=== PATIENT | female | born 1990 | race Caucasian/White ===

== ENCOUNTER 2016-05-26 13:09 | Emergency (ER) | payer BC, OTHER ==
[2016-05-26] MEDS ORDERED: Ondansetron ODT TAB* 4 MG PO ONE (13:34)
--- NOTE | 2016-05-26 13:35 | UC ---
UC General HPI - HPI Summary HPI Summary: The patient comes in today for: 1. Nausea/vomiting: Onset: 4 days ago. Palliative/provocative: Some smells makes her nausea worse. Quality: Nausea, only. Region: GI Severity: 8/10 Time: Some low level nausea with some rise in nausea that leads to her wanting to throw up. Associated symptoms: Abdominal cramps: None. Diarrhea: None. Vomiting: Once this morning and last night. Urination: Normal--color yellow--"I've been urinating a lot." Nausea treatment: None. LMP: May 07 of this year. There are three other women she is living with who have had a similar condition, but are further along in their recovery. * - History of Current Complaint Stated Complaint: NAUSEA,DRY HEAVING Hx Obtained From: Patient - Allergy/Home Medications Allergies/Adverse Reactions: Allergies Allergy/AdvReac Type Severity Reaction Status Date / Time No Known Allergies Allergy Verified 05/26/16 13:42 PMH/Surg Hx/FS Hx/Imm Hx Previously Healthy: No - Family planning/BCP Endocrine History Of: Denies: Diabetes, Thyroid Disease, Hyperthyroidism, Hypothyroidism, Dyslipidemia Cardiovascular History Of: Denies: Cardiac Disorders, Hypertension, Pacemaker/ICD, Myocardial Infarction , Congestive Heart Failure, Atrial Fibrillation, Deep Vein Thrombosis, Bleeding Disorders Respiratory History Of: Denies: COPD, Asthma, Bronchitis, Pneumonia, Pulmonary Embolism GI/ History Of: Denies: Gastroesophageal Reflux, Ulcer, Gastrointestinal Bleed, Gall Bladder Disease, Kidney Stones, Diverticulitis, Renal Disease, Urosepsis Neurological History Of: Denies: TIA, CVA, Dementia, Seizures, Migraine Psychological History Of: Denies: Anxiety, Depression, Bipolar Disorder, Schizophrenia, Post Traumatic Stress Disorder Cancer History Of: Denies: Lung Cancer, Colorectal Cancer, Breast Cancer, Prostate Cancer, Cervical Cancer Other History Of: Negative For: HIV, Hepatitis B, Hepatitis C, Anticoagulant Therapy - Surgical History Surgical History: Yes Surgery Procedure, Year, and Place: LEEP procedure- 10/05/14 for abnormal cells - Family History Known Family History: Negative: Cardiac Disease, Hypertension - Social History Occupation: Employed Part-time, Student Alcohol Use: None Substance Use Type: None Smoking Status (MU): Never Smoked Tobacco Review of Systems Constitutional: Negative Skin: Negative Eyes: Negative ENT: Negative Respiratory: Negative Cardiovascular: Negative Gastrointestinal: Negative, Vomiting Genitourinary: Negative All Other Systems Reviewed And Are Negative: Yes Physical Exam Triage Information Reviewed: Yes Appearance: Well-Appearing, No Pain Distress, Well-Nourished Vital Signs Reviewed: Yes Eyes: Positive: Conjunctiva Clear. Negative: Discharge ENT: Positive: Hearing grossly normal. Negative: Pharyngeal erythema, Nasal congestion, Nasal drainage, TM bulging, TM dull, TM red, Tonsillar swelling, Tonsillar exudate Dental: Negative: Gross Decay/Caries @, Dental Fracture @ Neck: Positive: Supple, Nontender, No Lymphadenopathy. Negative: Nuchal Rigidity Respiratory: Positive: Lungs clear, No respiratory distress, No accessory muscle use. Negative: Crackles, Stridor, Wheezing Cardiovascular: Positive: RRR, No Murmur Abdomen Description: Positive: Nontender, No Organomegaly, Soft. Negative: Distended, Guarding, Peritoneal Signs Musculoskeletal: Positive: Strength Intact, ROM Intact Neurological: Positive: Alert, Muscle Tone Normal Psychological: Positive: Age Appropriate Behavior, Consolable Skin: Negative: rashes, breakdown Re-Evaluation - Re-Evaluation First Eval Change: Improved - The patient states that she has a reduction in her nausea from 8/10 to 4/10. Course/Dx - Differential Dx - Multi-Symptom Differential Diagnoses: Other Provider Diagnoses: Viral gastroenteritis Discharge - Discharge Plan Condition: Stable Disposition: HOME Patient Education Materials: Gastroenteritis (ED) Referrals: BRISEYDA Cruz [Primary Care Provider] - 1 Week (Please see your primary care provider in about a week to see how well you are doing. If you get worse, please be seen sooner.)
[2016-05-26 13:47] VITALS: BP 113/60
== END 2016-05-26 14:39 | disposition home or self-care (01) ==
LOC: UCCORT 13:09
DX: A08.4 Viral intestinal infection, unspecified (principal)
CPT/HCPCS: 99212; A9270-GY; G0463

== ENCOUNTER 2016-07-03 19:25 | Emergency (ER) | payer BC | END 2016-07-03 21:31 | disposition left against medical advice (07) | LOC: UCCORT 19:25 | DX: S69.91XA Unspecified injury of right wrist, hand and finger(s), initial encounter (principal); X58.XXXA Exposure to other specified factors, initial encounter; Y93.9 Activity, unspecified; Y92.9 Unspecified place or not applicable; Z53.21 Procedure and treatment not carried out due to patient leaving prior to being seen by health care provider ==

== ENCOUNTER 2017-05-14 13:50 | Emergency (ER) | payer OTHER ==
--- NOTE | 2017-05-14 15:35 | UC ---
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 - History of Current Complaint Stated Complaint: LEFT ARM PAIN Time Seen by Provider: 05/14/17 15:35 Hx Obtained From: Patient Hx Last Menstrual Period: 05/07/2016 Onset/Duration: Sudden Onset Severity Initially: Moderate Severity Currently: Moderate Pain Scale Used: 0-10 Numeric - 7 Location Of Pain: Is Diffuse Character: Sharp, Dull, Aching Aggravating Factor(s): Movement, Lifting, Flexion, Extension, Abduction, Adduction Alleviating Factor(s): Rest Associated Signs And Symptoms: Positive: Negative - Allergies/Home Medications Allergies/Adverse Reactions: Allergies Allergy/AdvReac Type Severity Reaction Status Date / Time No Known Allergies Allergy Verified 05/26/16 13:42 PMH/Surg Hx/FS Hx/Imm Hx Previously Healthy: Yes Other History Of: Negative For: HIV, Hepatitis B, Hepatitis C, Anticoagulant Therapy - Surgical History Surgical History: Yes Surgery Procedure, Year, and Place: LEEP procedure- 10/05/14 for abnormal cells - Family History Known Family History: Negative: Cardiac Disease, Hypertension - Social History Alcohol Use: Occasionally Substance Use Type: None Smoking Status (MU): Never Smoked Tobacco Review of Systems Constitutional: Negative Skin: Negative Eyes: Negative ENT: Negative Respiratory: Negative Cardiovascular: Negative Gastrointestinal: Negative Genitourinary: Negative Motor: Negative Neurovascular: Negative Musculoskeletal: Other: - LEFT TRICEP PAIN Neurological: Negative Psychological: Negative All Other Systems Reviewed And Are Negative: Yes Physical Exam Triage Information Reviewed: Yes Vital Signs Reviewed: Yes Eye Exam: Normal ENT Exam: Normal Dental Exam: Normal Neck exam: Normal Neck: Positive: 1 Respiratory Exam: Normal Cardiovascular Exam: Normal Abdominal Exam: Normal Musculoskeletal: Positive: Other: - LEFT TRICEP PAIN/STRAIN Neurological Exam: Normal Psychological Exam: Normal Skin Exam: Normal Upper Extremity Course/Dx - Differential Dx/Diagnosis Provider Diagnoses: LEFT TRICEPS STRAIN Discharge - Discharge Plan Condition: Stable Disposition: HOME Prescriptions: Ibuprofen TAB* [Motrin TAB* 800 MG] 800 mg PO Q6H #30 tab Methocarbamol TAB* [Robaxin 500 MG TAB*] 500 mg PO TID PRN #30 tab PRN Reason: Pain Patient Education Materials: Tendinitis (ED) Forms: *Work Release Referrals: Chris Fulton MD [Medical Doctor] - BRISEYDA Cruz [Medical Doctor] - Yonatan Garrett [Physical Therapist] -
--- OUTSIDE RECORDS SUMMARY | 2017-05-14 15:43 | XMS REPORT ---
:1990 External Reference #:[id number] Author Organization [facility] Address [address] [place] [address] Phone [phone] Care Team Providers Name Role Phone Yolande Velazquez M.D. Primary Care Physician Unavailable Payers Type Date Identification Numbers Payment Provider Subscriber Commercial Effective: Policy Number: [id number] Snow Wagner 2016 PayID: [id number] [address] [place] [address] Commercial Expires: 2017 Policy Number: [employer] BC/BS Of Mayra Wagner [id number] ARIAN PayID: [id number] [address] [address] [place] [address] Problems Date Description Provider Status Onset: 10/05/2014 Cervical intraepithelial neoplasia In Rodrigo Sanchez M.D. Active grade 2 Onset: 09/01/2014 Dysplasia of cervix In Rodrigo Sanchez M.D. Active Onset: 07/23/2014 Atypical glandular cells on cervical Alicia Jean Baptiste CNM Active Papanicolaou smear Onset: 05/04/2014 Cervicovaginal cytology: Low grade Alicia Jean Baptiste CNM Active squamous intraepithelial lesion Onset: 05/04/2014 Candidal vulvovaginitis Alicia Jean Baptiste CNM Active Onset: 04/15/2014 Contraception care management Alicia Jean Baptiste CNM Active Onset: 04/15/2014 Screening for malignant neoplasm of Alicia Jean Baptiste CNM Active cervix Onset: 04/15/2014 Oral contraception Alicia Jean Baptiste CNM Active Onset: 04/15/2014 Refractory migraine without aura Gagrenetta, Alicia, CNM Active Family History Date Family Member(s) Problem(s) Comments Father No Current Problems Mother No Current Problems Social History Type Date Description Comments Marital Status Legal Status: Never Lives With Alone Smoke-Free Home is smoke-free Smoke-Free Work is smoke-free Work Status Full-Time Employment Abuse No history of abuse ETOH Use Occasionally consumes alcohol Smoking Patient has never smoked Recreational Drug Use Never Used Drugs Daily Caffeine Does Not Consume Caffeine Age 1st Dustin 17 Years Old # Partners in a Lifetime 7 STD's HPV Allergies, Adverse Reactions, Alerts Date Description Reaction Status Severity Comments 05/04/2014 NKDA active Medications Medication Date Status Form Strength Qnty SIG Indications Ordering Provider Sprintec 28 05/04/ Active Tablets 0.25-35mg- 28tabs Take One Z30.41 Marce2013 mcg Pill At [facility] The Same e, CNM Time Every Day Macrobid 03/14/ Hx Capsules 100mg 14caps twice a In [facility] 2016 day Penny Sanchez. Metronidazole 12/09/ Hx Tablets 500mg 14tabs 1 by 616.11 In [facility] 2014 mouth Oh MJaimeDJaime every 12 hours x 7 days No Active 05/04/ Hx Unknown Medications 2013 - 2013 Fluconazole 05/04/ Hx Tablets 150mg 1tabs take one 112.1 2013 tab now Jessica e, CNM Terazol 3 04/20/ Hx Cream 0.8% 3doses use in 2013 vagina Jessica for 3 e, CNM nights Sprintec 28 04/15/ Hx Tablets 0.25-35mg- 28tabs take one V25.41 Marce2013 mcg pill at [facility] the same e, CNM time every day Sprintec 28 / Hx Unknown 0000 Loratadine / Hx Tablets 10mg Atkinson, 0000 ELANA Casarez Fluticasone / Hx Suspension 50mcg/Act Use 2 Unknown Propionate 0000 Sprays Each Nostril Every Day Medications Administered in Office Medication Date Status Form Strength Qnty SIG Indications Ordering Provider Subcutaneous Or 12/06/ Administered Injection Gagen, Intramuscular 2009 Alicia Injection , CNM Subcutaneous Or 09/10/ Administered Injection Gagen, Intramuscular 2009 Alicia Injection , CNM Subcutaneous Or 03/19/ Administered Injection Gagen, Intramuscular 2008 Alicia Injection , CNM Subcutaneous Or 01/01/ Administered Injection Gagen, Intramuscular 2008 Alicia Injection , CNM Vital Signs Date Vital Result Comment 05/11/2017 Height 62.25 inches 5'2.25" Weight 125.00 lb BP Systolic 120 mmHg BP Diastolic 60 mmHg BMI (Body Mass Index) 22.7 kg/m2 09/15/2016 Height 62.75 inches 5'2.75" Weight 126.00 lb BP Systolic 120 mmHg BP Diastolic 66 mmHg BMI (Body Mass Index) 22.5 kg/m2 03/10/2016 Height 62.75 inches 5'2.75" Weight 120.00 lb BP Systolic 104 mmHg BP Diastolic 60 mmHg BMI (Body Mass Index) 21.4 kg/m2 08/26/2015 Height 62 inches 5'2" Weight 122.00 lb BP Systolic 120 mmHg BP Diastolic 60 mmHg BMI (Body Mass Index) 22.3 kg/m2 02/23/2015 Height 62 inches 5'2" Weight 124.00 lb BP Systolic 110 mmHg BP Diastolic 60 mmHg BMI (Body Mass Index) 22.7 kg/m2 12/09/2014 Height 62 inches 5'2" Weight 124.00 lb BP Systolic 120 mmHg BP Diastolic 58 mmHg BMI (Body Mass Index) 22.7 kg/m2 11/13/2014 Height 62 inches 5'2" Weight 126.00 lb BP Systolic 110 mmHg BP Diastolic 60 mmHg BMI (Body Mass Index) 23.0 kg/m2 09/29/2014 Height 62 inches 5'2" Weight 122.00 lb BP Systolic 110 mmHg BP Diastolic 60 mmHg BMI (Body Mass Index) 22.3 kg/m2 09/01/2014 Height 62 inches 5'2" Weight 126.00 lb BP Systolic 120 mmHg BP Diastolic 60 mmHg BMI (Body Mass Index) 23.0 kg/m2 08/13/2014 Height 62 inches 5'2" Weight 126.00 lb BP Systolic 112 mmHg BP Diastolic 58 mmHg BMI (Body Mass Index) 23.0 kg/m2 07/22/2014 Height 62 inches 5'2" Weight 125.00 lb BP Systolic 112 mmHg BP Diastolic 58 mmHg BMI (Body Mass Index) 22.9 kg/m2 05/04/2014 Height 62 inches 5'2" Weight 122.00 lb BP Systolic 120 mmHg BP Diastolic 68 mmHg BMI (Body Mass Index) 22.3 kg/m2 04/15/2014 Height 62 inches 5'2" Weight 120.00 lb BP Systolic 102 mmHg BP Diastolic 60 mmHg BMI (Body Mass Index) 21.9 kg/m2 Results Test Date Test Result H/L Range Note Laboratory test finding 05/11/2017 Cytology <pending> Laboratory test finding 09/15/2016 Cytology SEE RESULT BELOW 1 Laboratory test finding 08/26/2015 Cytology Pap HR- 2 Laboratory test finding 02/23/2015 Cytology Pap See Note 3 Laboratory test finding 12/09/2014 Urine Culture See Note 4 Urinalysis With 12/09/2014 Urine Color YELLOW Yellow Microscopic Urine Clarity CLEAR Clear Urine Glucose - Dipstick NEGATIVE mg/dL Negative Urine Bilirubin - Dipstick NEGATIVE Negative Urine Ketone NEGATIVE mg/dL Negative Urine Specific Irons <=1.005 Low 1.010-1.030 Urine Blood NEGATIVE Negative Urine PH 7.0 6.5-7.5 Urine Protein - Dipstick NEGATIVE mg/dL Negative Urine Urobilinogen - Dipstick 0.2 E.U./dL 0.2-1.0 Urine Nitrite - Dipstick NEGATIVE Negative Urine Leuk Esterase NEGATIVE Negative Urine RBC NONE SEEN rbc/hpf 0-2 Urine WBC NONE SEEN wbc/hpf 0-7 Urine Epithelial Cells VERY FEW NONESEEN/lpf Urine Bacteria VERY FEW NONESEEN Genital Culture W/ Gram Stain 12/09/2014 Gram Stain See Note 5 Genital Culture See Note 6 Chlamydia/GC Vanesa 12/09/2014 Chlamydia Trachomatis, Vanesa Negative Negative Neisseria Gonorrhoeae, Vanesa Negative Negative Please note: See Note 7 Laboratory test finding 10/05/2014 Cervical Cone/LEEP See Note 8 CBC 09/29/2014 White Blood Count 5.3 K/uL 3.1-10.7 Red Blood Count 4.21 M/uL 3.90-5.40 Hemoglobin 13.4 gm/dL 11.6-15.8 Hematocrit 39.8 % 36.0-46.1 Mean Cell Volume 94.5 fl 80.9-99.0 Mean Corpuscular HGB 31.8 pg 25.9-32.7 Mean Corpuscular HGB Conc 33.7 g/dL 30.8-34.3 Platelet Count 284 K/uL 155-360 Red Cell Distri Width %CV 12.3 % 11.7-14.4 Mean Platelet Volume 10.2 fL 8.9-12.4 Laboratory test finding 09/29/2014 HCG,Serum(Qualitative) NEGATIVE ( Negative) Laboratory test finding 08/13/2014 Cervical biopsy See Note 9 Laboratory test finding 07/22/2014 Cytology Pap See Note 10 Laboratory test finding 05/04/2014 Surgical Pathology See Note 11 Pap Plus HPV 04/15/2014 CoPathPlus HPV HR+ 12 1 SEE RESULT BELOW Name: MAYRA WAGNER : [address]: Jillian Sanchez MD Acct: [id number] Unit: [id number] AGE: 25 Location: [facility] Re09/15/16 SEX: F Status: REG REF SPEC: [id number] CARLO: 09/15/16-1042 [facility] DR: Jillian Sanchez MD REQ: [id number] RECD: 09/15/164213 STATUS: SOUT _ ORDERED: TP IMAGE ANAL COMMENTS: [id number] FINAL DIAGNOSIS Negative for Intraepithelial lesion or Malignancy A. Ectocervical/Endocervical Specimen Adequacy: Satisfactory of evaluation Transformation zone component identified Patient Information: HPV: Thin Layer Pap Test w/reflex to high risk HPV RNA testing when ASCUS Actual Specimen Date: 09/15/16 Previous Abnormal Pap Smears?:Y If Yes, enter Diagnosis: 08/26/15 Atypical Squamous cells of uncertain significance. 02/23/15 Low grade squamous intraepithelial lesion. Signed (signature on file) Dulce PatelSD(ASCP) 09/19 0915 This Pap test was evaluated with the assistance of the ThinPrep Test Imaging System. Due to cytologic findings at the manager project management microscope, comprehensive manual rescreening by a Metal Expediter may be required. The Pap Smear is a screening test designed to aid in the detection of premalignant and malignant conditions of the uterine cervix. It is not a diagnostic procedure and should not be used as the sole means of detecting cervical cancer. Both false- positive and false- negative reports do occur. Depending on your risk status, a Pap smear should be obtained and evaluated every 1-3 years. END OF REPORT * ML=Testing performed at Main Lab DEPARTMENT OF PATHOLOGY, [address] [place] [address] Jovon Au M.D. Director [facility] # [id number] 2 Interpretation: ATYPICAL SQUAMOUS CELLS OF UNDETERMINED SIGNIFICANCE (ASC-US). Specimen Adequacy: SATISFACTORY FOR EVALUATION. Additional Findings: ENDOCERVICAL/TRANSFORMATION ZONE PRESENT. This liquid-based ThinPrep Pap Test was screened with the use of the ThinPrep Imaging System and was reported using [facility] System descriptive nomenclature. Cytology Laboratory [address] [place] [address], [address] [place] [address] CYTOLOGY REPORT Name: Mayra Wagner : 1990 (Age: 24) Sex: F Location: [facility] GYN [facility] Med. Rec. # [id number] Date Collected: 08/26/2015 Billing #: [id number] Date Received: 08/26/2015 Requisition # [id number] Physician(s): JILLIAN SANCHEZ MD Source of Specimen: ENDOCERVICAL/ECTOCERVICAL THIN PREP Clinical Information: Date of Last Menstrual Period: None Provided md Electronic Signature Deo Ward MD Reported: 08/31/2015 Also seen by: KEYANA Gomez (ASC) KEYANA Edward ([facility]) [facility] [employer] [facility] HPV High Risk Date Ordered: 08/31/2015 Status: Signed Out Date Reported: 09/01/2015 High Risk NEGATIVE (HPV Types 16, 18, 31, 33, 35, 39, 45, 51, 52, 56, 58, 59, 66, 68) APTIMA Electronic Signature Deya Dowell MT [facility] [employer] [facility] Dx Code(s): N87.9 A; R87.610 3 Interpretation: LOW GRADE SQUAMOUS INTRAEPITHELIAL LESION: MILD DYSPLASIA (RHONDA 1) AND HPV CHANGE. Specimen Adequacy: SATISFACTORY FOR EVALUATION. Additional Findings: ENDOCERVICAL/TRANSFORMATION ZONE PRESENT. Cytology Laboratory [address] [place] [address], [address] [place] [address] CYTOLOGY REPORT Name: Mayra Wagner : 1990 (Age: 24) Sex: F Location: [facility] GYN [facility]. # [id number] Date Collected: 02/23/2015 Billing #: [id number] Date Received: 02/24/2015 Requisition # [id number] Physician(s): IN RIKY MT Source of Specimen: CERVICAL THIN PREP Clinical Information: Date of Last Menstrual Period: None Provided kw Electronic Signature Deo Dupont MD Reported: 03/01/2015 Also seen by: KEYANA Edward ([facility]) [facility] [employer] [facility] Dx Code(s): N87.9 Z12.4 A; R87.612 A63.0 4 Organism 1 ! URETHRAL KARISSA Quantity ! < 10,000 CFU/mL 5 GRAM STAIN ! GRAM STAIN INDICATES NORMAL GENITAL KARISSA ! MANY GR POS. BACILLI SUGGESTIVE OF LACTOBACILLUS SP. ! FEW WHITE BLOOD CELLS ! 6 GENITAL KARISSA 7 Acceptable specimens for this test are male urethral swab, endocervical swab and liquid based pap specimens, vaginal swabs in APTIMA transports and first void urine. See online Directory of Services for test number for rectal and pharyngeal specimens. Performed at: RN - [facility] [address] [id number] Cylinder Press Operator Apprentice: Marion Tovar MD, Phone: [phone] OPERATION/PROCEDURE LEEP DIAGNOSIS: "LEEP CERVICAL CONE SPECIMEN": LOW-GRADE CHRISTAL, MILD SQUAMOUS DYSPLASIA WITH HPV EFFECT AND FOCAL ENDOCERVICAL GLAND INVOLVEMENT. MATURE SQUAMOUS METAPLASIA. ENDOCERVICAL MARGIN OF RESECTION IS FREE OF DYSPLASTIC INVOLVEMENT. /[facility] 1018 GROSS The specimen is submitted in formalin in a container labeled, "LEEP" and consists of a grossly identifiable LEEP specimen 1.5 x 1.5 x 0.5 cm. The endocervical margin is marked with blue ink, the specimen is serially sectioned and submitted entirely in four blocks. /[facility] PRE OPERATIVE DIAGNOSIS Cervical dysphasia REVIEW CODE CODE: I Signed Electronically signed GABBY TENA MD [id number] Diagnosis: MODERATE TO SEVERE DYSPLASIA (RHONDA 2-3), CERVICAL BIOPSY. MILD DYSPLASIA ( RHONDA 1) IS PRESENT WELL. [facility] [address] [place] [address], [address] [place] [id number] SURGICAL PATHOLOGY REPORT Name: Mayra Wagner Pathology #: [id number] : 1990 (Age: 23) Sex: F Location: [facility] Med. Rec. # [id number] Date of Procedure: 08/13/2014 Billing #: [id number] Date Received: 08/13/2014 Requisition #: [id number] Physician(s): JANIE JEAN BAPTISTE CNM Specimen(s) Received: Cervical biopsy Clinical Information: 795.03, 622.10 Gross Description: Specimen received in formalin and labeled "cervical biopsy" is a holley-mathew rubbery irregular tissue fragment measuring 0.6 cm in greatest dimension. Submitted in toto. (1 block) lr /JR Reported: 08/14/2014 Electronic Signature cf Deo Dupont MD [facility] ICD-9 Codes: 622.10 10 Interpretation: LOW GRADE SQUAMOUS INTRAEPITHELIAL LESION: MILD DYSPLASIA (RHONDA 1) AND HPV CHANGE. Specimen Adequacy: SATISFACTORY FOR EVALUATION. Additional Findings: ENDOCERVICAL/TRANSFORMATION ZONE PRESENT. Cytology Laboratory [address], [address] [place] [address] CYTOLOGY REPORT Name: Mayra Wagner : 1990 (Age: 23) Sex: F Location: [facility] Med. Rec. # [id number] Date Collected: 07/22/2014 Billing #: [id number] Date Received: 07/22/2014 Requisition # [id number] Physician(s): JANIE JEAN BAPTISTE CNM Source of Specimen: ENDOCERVICAL/ECTOCERVICAL THIN PREP Clinical Information: Date of Last Menstrual Period: None Provided md Electronic Signature Deo Dupont MD Reported: 07/27/2014 Also seen by: KEYANA Edward (ASCP) [facility] ICD-9 Code(s) V76.2 A; 795.03 078.11 11 [facility] [address], [address] [place] [address] SURGICAL PATHOLOGY REPORT Name: Mayra Wagner Pathology #: [id number] : 1990 (Age: 23) Sex: F Location: [facility]. Rec. # [id number] Date of Procedure: 05/04/2014 Billing #: [id number] Date Received: 05/04/2014 Requisition #: [id number] Physician(s): JANIE JEAN BAPTISTE CNM Specimen(s) Received: Endocervical curettage Clinical Information: 795.03 Gross Description: Specimen received in formalin labeled "endocervical curettings" is a 0.25 cc aggregate of mucus and clotted blood which is submitted in toto. (1 block) kw /MTM Diagnosis: ENDOCERVIX, CURETTAGE - SCANT DETACHED MILDLY DYSPLASTIC SQUAMOUS CELLS (RHONDA 1) AND UNREMARKABLE ENDOCERVIX. Comment: The dysplastic squamous cells are present as individual detached cells and are very limited in the sections. Reported: 05/05/2014 Electronic Signature anu Ward MD [facility] [employer] ICD-9 Codes: 622.10 12 Cytology Laboratory [address] [place] [address], [address] [place] [address] CYTOLOGY REPORT Name: Mayra Wagner : 1990 (Age: 23) Sex: F Location: [facility]. Rec. # [id number] Date Collected: 04/15/2014 Billing #: [id number] Date Received: 04/16/2014 Requisition # [id number] Physician(s): JANIE JEAN BAPTISTE CNM Source of Specimen: ENDOCERVICAL/ECTOCERVICAL THIN PREP Clinical Information: Date of Last Menstrual Period: None Provided Interpretation: LOW GRADE SQUAMOUS INTRAEPITHELIAL LESION: MILD DYSPLASIA (RHONDA 1) AND HPV CHANGE. FUNGAL ORGANISMS MORPHOLOGICALLY CONSISTENT WITH STONE SP. Specimen Adequacy: SATISFACTORY FOR EVALUATION. Additional Findings: ENDOCERVICAL/TRANSFORMATION ZONE PRESENT. Electronic Signature Chucho Sue MD Reported: 04/20/2014 Also seen by: KEYANA Gomez (ASCP) [facility] HPV High Risk Date Ordered: 04/17/2014 Status: Signed Out Date Reported: 04/17/2014 High Risk POSITIVE (HPV Types 16, 18, 31, 33, 35, 39, 45, 51, 52, 56, 58, 59, 66, 68) APTIMA Electronic Signature Deya Delmer [facility] ICD-9 Code(s) V76.2 795.05 A; 795.03 078.11 112.1 Procedures Date CPT Code Description Status 10/05/2014 99602 Colposcopy W/LEEP Cervix W\\Loop Electrode Biopsy(S) Completed Cervix 08/13/2014 27127 Colposcopy W/Biopsy (S) Cervix/Endocervical Curettage Completed 05/04/2014 95913 Colposcopy W/Biopsy (S) Cervix/Endocervical Curettage Completed 2009 39416 Subcutaneous Or Intramuscular Injection Completed 09/10/2009 86322 Subcutaneous Or Intramuscular Injection Completed 03/19/2009 27193 Subcutaneous Or Intramuscular Injection Completed 01/01/2009 34801 Subcutaneous Or Intramuscular Injection Completed Encounters Type Date Location Provider CPT E/M Dx Office Visit 09/15/2016 10:00a Main Office In Rodrigo Sanchez M.D. 93685 Z87.410 Office Visit 03/10/2016 11:15a Main Office In Rodrigo Sanchez M.D. 39017 Z01.411 Z30.09 Z87.410 R10.2 Office Visit 08/26/2015 10:15a Main Office In Rodrigo Sanchez M.D. 00458 Z30.02 N87.9 Z30.41 Office Visit 02/23/2015 4:15p Main Office In Rodrigo Sanchez M.D. 79086 N87.9 Z12.4 Office Visit 12/09/2014 10:45a Main Office In Rodrigo Sanchez M.D. 24247 616.11 Office Visit 11/13/2014 10:45a Main Office In Rodrigo Sanchez M.D. 46963 622.10 Office Visit 09/01/2014 11:15a Main Office In Rodrigo Sanchez M.D. 46682 622.10 Office Visit 07/22/2014 1:00p Main Office Alicia Jean Baptiste CNM 73771 795.00 V76.2 V25.41 Office Visit 05/04/2014 10:00a Main Office Alicia Jean Baptiste CNM 96586 795.03 112.1 V25.41 Office Visit 04/15/2014 1:30p [place] [address] V72.31 V76.2 V25.41 346.13 Office Visit 06/15/2009 3:00p Main Office Tracey Bocanegra NP,MSN,[facility] 70814 V25.09 Office Visit 03/19/2009 11:00a Main Office Alicia Jean Baptiste, ARIAN 13279 V25.09 Office Visit 01/01/2009 2:00p Main Office Alicia Jean Baptiste, ARIAN 86322 V25.09 Office Visit 12/22/2008 11:20a Main Office Tracey Bocanegra NP,MSN,[facility] 40530 V25.09 Office Visit 10/14/2008 1:40p Main Office Tracey Bocanegra NP,MSN,[facility] 80928 V72.31 V76.2 V74.5 V25.01 Plan of Care 05/11/2017 - In Rodrigo Sanchez M.D.Z01.411 Encntr for planning coordinator exam (general) (routine) w abnormal findingsFollow up:1 year.Z87.410 Personal history of cervical qjtkviysnI25.4 Encounter for screening for malignant neoplasm of cervixFollow up :1 year.Z30.09 Encounter for oth general coun and advice on bxlbsehajcbvpD13.3 shelter (current) use of hormonal contraceptives
[2017-05-14 16:02] VITALS: BP 121/71
== END 2017-05-14 16:18 | disposition home or self-care (01) ==
LOC: UCCORT 13:50
DX: S46.312A Strain of muscle, fascia and tendon of triceps, left arm, initial encounter (principal); X50.0XXA Overexertion from strenuous movement or load, initial encounter; Y93.89 Activity, other specified; Y92.9 Unspecified place or not applicable; Y99.0 Civilian activity done for income or pay
CPT/HCPCS: 99212; G0463

== ENCOUNTER 2017-09-04 10:06 | Emergency (ER) | payer OTHER ==
[2017-09-04] MEDS ORDERED: Albuterol HFA INHALER* 8 gm MDI INH ONE (12:09)
[2017-09-04 12:16] VITALS: BP 102/65
--- NOTE | 2017-11-20 09:07 | UC ---
UC General HPI - HPI Summary HPI Summary: Pt presents complaining of headache, cough, congestion and runny nose since Sunday. Denies fever, chills. Headache is not describd as wol. No rash. Minimal GI issues. - History of Current Complaint Chief Complaint: UCGeneralIllness Stated Complaint: SINUS COMP/CONGESTION Time Seen by Provider: 09/04/17 11:52 Hx Obtained From: Patient Hx Last Menstrual Period: 08/06/17 Pain Intensity: 0 - Allergy/Home Medications Allergies/Adverse Reactions: Allergies Allergy/AdvReac Type Severity Reaction Status Date / Time No Known Allergies Allergy Verified 09/04/17 12:13 PMH/Surg Hx/FS Hx/Imm Hx Previously Healthy: Yes Other History Of: Negative For: HIV, Hepatitis B, Hepatitis C, Anticoagulant Therapy - Surgical History Surgical History: Yes Surgery Procedure, Year, and Place: LEEP procedure- 10/05/14 for abnormal cells. appendectomy 2011 - Family History Known Family History: Negative: Cardiac Disease, Hypertension - Social History Alcohol Use: Occasionally Substance Use Type: None Smoking Status (MU): Never Smoked Tobacco - Immunization History Most Recent Influenza Vaccination: NOT CURRENT Review of Systems Constitutional: Fever, Fatigue Skin: Negative Eyes: Negative ENT: Nasal Discharge Respiratory: Cough Cardiovascular: Negative Gastrointestinal: Negative Genitourinary: Negative Motor: Negative Neurovascular: Negative Musculoskeletal: Arthralgia Neurological: Headache Psychological: Negative Is Patient Immunocompromised?: No All Other Systems Reviewed And Are Negative: Yes Physical Exam Triage Information Reviewed: Yes Appearance: Well-Nourished - tired but nad Vital Signs: Initial Vital Signs Temp 99.6 F 09/04/17 12:10 Pulse 97 09/04/17 12:10 Resp 18 09/04/17 12:10 BP 102/65 09/04/17 12:10 Pulse Ox 98 09/04/17 12:10 Vital Signs Reviewed: Yes Eye Exam: Normal ENT: Positive: Pharyngeal erythema - c/w cough, Nasal congestion, TM dull Neck exam: Normal Neck: Positive: Supple, Nontender Respiratory Exam: Other - + rhonchorus cough, scattered wheeze Respiratory: Positive: No respiratory distress, No accessory muscle use Cardiovascular Exam: Normal Cardiovascular: Positive: RRR, Pulses Normal, Brisk Capillary Refill Abdominal Exam: Normal Abdomen Description: Positive: Nontender Musculoskeletal Exam: Normal - gait steady, moves x 4 ext's Neurological Exam: Normal - grossly nonfocal Psychological Exam: Normal - conversing easily and appopriately Skin Exam: Normal - no visible or reported rash Course/Dx - Course Course Of Treatment: Reviewed coa / tx plan. Questions as posed answered to the best of my ability. - Differential Dx - Multi-Symptom Provider Diagnoses: Bronchitis with wheezing Discharge - Sign-Out/Discharge Documenting (check all that apply): Patient Departure - Discharge Plan Condition: Stable Disposition: HOME Prescriptions: Albuterol HFA INHALER* [Ventolin HFA Inhaler*] 1 - 2 puff INH Q4H PRN #1 mdi PRN Reason: Wheezing Azithromyxin ACE (NF) [Z-Ace (Zithromax) 250 mg tabs #6] 2 tab PO .TODAY, THEN 1 DAILY #6 tab Patient Education Materials: Acute Bronchitis (ED), Wheezing (ED) Forms: *Work Release Referrals: BRISEYDA Cruz [Primary Care Provider] - Additional Instructions: Follow up with your primary care physician in the next couple weeks for recheck (respiratory). Seek medical attention for worse or new problems in the meantime. - Billing Disposition and Condition Condition: STABLE Disposition: Home
== END 2017-09-04 12:32 | disposition home or self-care (01) ==
LOC: UCCORT 10:06
DX: J40 Bronchitis, not specified as acute or chronic (principal); R06.2 Wheezing
CPT/HCPCS: 99213; A9270-GY; G0463

== ENCOUNTER 2019-01-30 07:53 | Emergency (ER) | payer OTHER ==
[2019-01-30 08:12] VITALS: BP 110/61
--- NOTE | 2019-01-30 08:59 | UC ---
Shoulder Pain HPI - HPI Summary HPI Summary: Patient presents to urgent care for evaluation of her left shoulder. Patient states she was doing MMA last evening when she fell landing on the shoulder. Patient states she took some Tylenol. Patient states during the night she had ongoing increasing pain. Patient states this morning she has significant pain with any type some movement. Pt did not take analgesia today. Patient states she feels it radiate towards the left side of her upper back. No paresthesias. No weakness. No elbow or hand pain. Patient is right-hand dominant. Patient 's medications reviewed this visit. Patient states she is not . - History of Current Complaint Chief Complaint: UCUpperExtremity Stated Complaint: LEFT SHOULDER INJURY Time Seen by Provider: 01/30/19 08:27 Hx Obtained From: Patient Hx Last Menstrual Period: 01/08/19 Pain Intensity: 10 - Allergies/Home Medications Allergies/Adverse Reactions: Allergies Allergy/AdvReac Type Severity Reaction Status Date / Time No Known Allergies Allergy Verified 01/30/19 08:12 PMH/Surg Hx/FS Hx/Imm Hx Previously Healthy: Yes Other History Of: Negative For: HIV, Hepatitis B, Hepatitis C, Anticoagulant Therapy - Surgical History Surgical History: Yes Surgery Procedure, Year, and Place: LEEP procedure- 10/05/14 for abnormal cells. 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, shipping drafter apprentice Lives: With Family Alcohol Use: Occasionally Substance Use Type: None Smoking Status (MU): Never Smoked Tobacco - Immunization History Most Recent Influenza Vaccination: NOT CURRENT Review of Systems All Other Systems Reviewed And Are Negative: Yes Constitutional: Positive: Negative Skin: Positive: Negative Musculoskeletal: Positive: Other: - left shoulder pain Neurological: Negative: Weakness, Numbness Is Patient Immunocompromised?: No Physical Exam - Summary Physical Exam Summary: Vital Signs Reviewed: Yes A+Ox3, no distress Eyes: Conjunctiva Clear ENT: Hearing grossly normal neck: supple Respiratory: Positive: No respiratory distress, No accessory muscle use Cardiovascular: skin color reflect adequate perfusion 2+ radia,l. ulnar CBT <2 sec Musculoskeletal Exam: +TTP left anterior superior margin shoulder pain upper trapezius on left + flex/ext elbpw with pain in shoulder + pronate/supinate AROM limited 30 second to pain PROM to 45 Neurological: Positive: Alert, ambulatory without difficulty + gross sensation + thumb up, a ok, finger cross, finger spread Psychological: Positive: Normal Response To examiner Skin: Positive: no rash, no ecchymosis, no edema, Triage Information Reviewed: Yes Vital Signs: Initial Vital Signs Temp 99.3 F 01/30/19 08:07 Pulse 87 01/30/19 08:07 Resp 16 01/30/19 08:07 BP 110/61 01/30/19 08:07 Pulse Ox 100 01/30/19 08:07 Diagnostics - Radiology No standard instances Radiology Interpretation Completed By: Radiologist - Patient Name: RALPH WAGNER Medical Record#: [id number] Ordering Physician: Mary Scanlon MD Acct.#: [id number] : 1990 Age: 28 Sex: F Location: [facility]RGENT [facility] Exam Date: 01/30/19905 ADM Status: REG ER Order Information: SHOULDER LEFT 2+ VWS Accession Number: [id number] CPT: 25076 HISTORY: left anterior shoulder pain s/p fall . COMPARISONS: None relevant available at the time of dictation. VIEWS: 4, Frontal internal rotation, external rotation, outlet, and axillary views of the left shoulder FINDINGS: BONE DENSITY: Normal. BONES: There is no displaced fracture. JOINTS: There is no arthropathy. ALIGNMENT: There is no dislocation. SOFT TISSUES: Unremarkable. OTHER FINDINGS: None. IMPRESSION: NO ACUTE OSSEOUS INJURY. IF SYMPTOMS PERSIST, RECOMMEND REPEAT IMAGING. <Electronically signed by Steven Solano MD in OV> 01/30/19923 Dictated By: Steven Solano MD Dictated Date/Time: 01/30/19923 Transcribed Date/Time: 01/30/19923 Copy to: CC:Emilia Dean MD; Mary Scanlon MD Imaging - [facility] Imaging - [facility] [address] ) ([phone]) ([phone]) This report is only to be considered final once signed by the Provider(s) as displayed in the "< Electronically Signed by >" field (s). Absence of a signature indicates the report is in a draft status and still needs to be finalized. In the event this document was created by someone other than the signing Provider, the individual initiating the document will be listed in the "Entered by:" or "Dictated by:" tanner. 1 of 1 Shoulder Course/Dx - Course Course Of Treatment: Patient presents with left shoulder pain status post falling at a training session last night. Patient is right-hand dominant. Patient took Tylenol last night but no analgesia today. No ice applied. Patient with pain on the anterior superior aspect of the left shoulder. Pain is worse with movement. Patient distal CSM intact. No elbow or wrist pain. Patient's right-hand dominant. On exam tenderness to the left anterior superior shoulder. Patient with active range of motion limited 30 abduction due to pain. Able to passively range to 45. Patient pain anterior shoulder. We'll check imaging. low suspicion for fracture dislocation. Anticipate sling. Ice. Motrin/ Tylenol. Follow-up with orthopedic or sports medicine. Patient will be given a note for work. Patient encouraged to take her arm out of sling to do shoulder circles as well as left elbow with extend. Patient states understanding agreement with plan. - Differential Dx/Diagnosis Provider Diagnosis: Left shoulder pain Discharge ED - Sign-Out/Discharge Documenting (check all that apply): Patient Departure All imaging exams completed and their final reports reviewed: No Studies - Discharge Plan Condition: Stable Disposition: HOME Patient Education Materials: Shoulder Pain (ED) Forms: *Work Release Referrals: [facility] [Provider Group] (You may request an appointment in the [place] office) Emilia Dean MD [Primary Care Provider] - Chris Fulton MD [Medical Doctor] - Additional Instructions: -wear sling for comfort and support. relax your shoulder so the sling holds the weight of your shoulder - Take your arm outside of your sling and fully bend/stretching of elbow and makes small circles at your shoulder as demonstrated in the urgent car -apply ice (20 min at a time) every 2-3 hours for the next 2 days --Okay to alternate ibuprofen (Advil, Motrin) 600mg and Tylenol every 3 hours for pain. Take with food. Do NOT take for more than 4-5 days. Take with food -Contact the orthopedic provider or sports announcer today to schedule a follow-up appointment. . Contact your doctor or return with questions or concerns - Billing Disposition and Condition Condition: STABLE Disposition: Home
[2019-01-30] MEDS: Ibuprofen TAB* 600 MG PO ONE (09:19)
== END 2019-01-30 09:34 | disposition home or self-care (01) ==
LOC: UCCORT 07:53
DX: M25.512 Pain in left shoulder (principal)
CPT/HCPCS: 99213; A9270-GY; G0463